=== PATIENT | female | born 1930 | race Hispanic/Latino ===

== ENCOUNTER 2017-10-26 08:41 | Day surgery (SDC) | payer OTHER ==
[~2017-10-26] VITALS: Ht 157.5 cm; Wt 56.2 kg
[~2017-10-26 08:41] MED LIST: ASPI-1012 PO; CARV12.511 PO; LETR2.5T6 PO; LEVO100T12 PO; TOBR5DRO7 OP
[2017-10-26 09:41] VITALS: BP 110/53
[2017-10-26] MEDS ORDERED: SODIUM CHLORIDE 0.9% 1000ML 1,000 ML IV ONE (10:20)
[2017-10-26] MEDS ORDERED: PROPOFOL 10 MG/ML 20ML VIAL IV ONE (11:21)
[2017-10-26 11:42] VITALS: BP 94/36
== END 2017-10-26 12:45 ==
LOC: DAH 08:41
PROVIDERS: ATTEND Internal Medicine Gastroenterology
DX: C25.0 Malignant neoplasm of head of pancreas (principal); K76.89 Other specified diseases of liver; Z90.710 Acquired absence of both cervix and uterus; I10 Essential (primary) hypertension; E03.9 Hypothyroidism, unspecified; E78.5 Hyperlipidemia, unspecified; I25.10 Atherosclerotic heart disease of native coronary artery without angina pectoris; Z85.3 Personal history of malignant neoplasm of breast; Z90.10 Acquired absence of unspecified breast and nipple; Z88.0 Allergy status to penicillin; Z79.899 Other long term (current) drug therapy
CPT/HCPCS: 43237; A4606; J2704; J7030; 43231